=== PATIENT | female | born 1995 | race Caucasian/White ===

== ENCOUNTER 2016-06-23 02:16 | Inpatient (IN) | payer OTHER, MEDICAID ==
[~2016-06-23] VITALS: Ht 162.6 cm; Wt 94.8 kg
[2016-06-23] VITALS (16 sets, daily range): BP systolic 97–133; RESP 16–20; TEMP 98.1–98.6; Ht 162.6 cm; Wt 94.8 kg
[2016-06-23] MEDS ORDERED: ALU/MAG/SIM 30 ML UDC PO PRN (02:20)
[2016-06-23] MEDS ORDERED: ONDANSETRON 4 MG VIAL IV PRN (02:20)
[2016-06-23] MEDS ORDERED: FAMOTIDINE 20 MG INJ IV PRN (02:20)
[2016-06-23] MEDS ORDERED: LIDOCAINE 1% 30 ML PF INFILTRATE ONE (02:20)
[2016-06-23] MEDS ORDERED: OXYTOCIN 15 UNITS/250 ML NS 250 ML IV SCH ×2 (02:20→05:25)
[2016-06-23] MEDS ORDERED: ACETAMINOPHEN 325 MG TAB PO PRN (02:20)
[2016-06-23] MEDS ORDERED: METOCLOPRAMIDE 10 MG/2 ML VIAL IV PUSH PRN (02:20)
[2016-06-23] MEDS ORDERED: TERBUTALINE 1 MG/ML VIAL SUBQ PRN (02:20)
[2016-06-23] MEDS ORDERED: FAMOTIDINE 20 MG TAB PO PRN (02:20)
[2016-06-23] MEDS ORDERED: PROMETHAZINE 25 MG/ML VIAL IV PRN (02:20)
[2016-06-23] MEDS ORDERED: FENTANYL 100 MCG/2 ML AMP ONE (02:30)
[2016-06-23] MEDS ORDERED: ROPIV/FENT 0.2%-2MCG/ML 100 ML EPIDURAL ONE (02:30)
[2016-06-23] MEDS: LACT RINGERS 1,000 ML IV SCH ×2 (02:35→03:36)
[2016-06-23] MEDS ORDERED: LACT RINGERS 500 ML IV ONE (03:05)
[2016-06-23] MEDS ORDERED: SODIUM CHLORIDE 0.9% 500 ML IV PRN (03:05)
[2016-06-23] MEDS ORDERED: FENTANYL 100 MCG/2 ML AMP EPIDURAL ONE (03:05)
[2016-06-23] MEDS ORDERED: LACT RINGERS 500 ML IV PRN (03:05)
[2016-06-23] MEDS ORDERED: ROPIV/FENT 0.2%-2MCG/ML 100 ML EPIDURAL SCH (03:05)
[2016-06-23] MEDS ORDERED: PHARMACY TO DOSE GENTAMICIN IV PRN (03:15)
[2016-06-23] MEDS ORDERED: CLINDAMYCIN 900 MG in DEXTROSE 5% 50 ML IV PRN (03:15)
[2016-06-23] MEDS ORDERED: GENTAMICIN 350 MG in SODIUM CHLORIDE 0.9% 100 ML IV PRN (03:20)
[2016-06-23] MEDS ORDERED: MISOPROSTOL 200 MCG TAB PO ONE (05:25)
[2016-06-23] MEDS ORDERED: SALINE FLUSH 10 ML FLUSH PRN (05:25)
[2016-06-23] MEDS ORDERED: ASTRINGENT MED PADS 40'S TOPICAL PRN (05:25)
[2016-06-23] MEDS ORDERED: MISOPROSTOL 200 MCG TAB RECTAL ONE ×2 (05:25→06:20)
[2016-06-23] MEDS ORDERED: TDaP 0.5 ML VIAL IM.VACC ONE (05:25)
[2016-06-23] MEDS ORDERED: SODIUM CHLORIDE 0.9% FLUSH BAG 500 ML IV PRN (05:25)
[2016-06-23] MEDS ORDERED: DERMOPLAST SPRAY TOPICAL PRN (05:25)
[2016-06-23] MEDS ORDERED: MEASLES,MUMPS,RUBELLA VAC SUBQ.VACC ONE (05:25)
[2016-06-23] MEDS ORDERED: MAG HYDROX 30 ML UDC PO PRN (05:25)
[2016-06-23] MEDS ORDERED: ZOLPIDEM 5 MG TAB PO PRN (05:25)
[2016-06-23] MEDS ORDERED: MISOPROSTOL 100 MCG TAB ONE ×2 (05:48→06:11)
[2016-06-23] MEDS ORDERED: METHYLERGONOVINE MAL 0.2 MG/ML AMP ONE (06:11)
[2016-06-23] MEDS ORDERED: METHYLERGONOVINE MAL 0.2 MG/ML AMP IM ONE (06:20)
[2016-06-23] MEDS: Ibuprofen 800 MG TAB PO SCH ×3 (07:54→23:36)
[2016-06-23] MEDS: DOCUSATE SOD 100 MG CAP PO SCH (07:54)
[2016-06-23] MEDS ORDERED: **ONLY ANESTEHSIA MAY ORDER OPIATES WHILE ON EPIDURAL XX SCH (08:00)
[2016-06-23] MEDS: SALINE FLUSH 10 ML FLUSH SCH ×2 (08:00→20:00)
[2016-06-23] MEDS: METHYLERGONOVINE 0.2 MG TAB PO SCH ×3 (12:08→23:36)
[2016-06-24 02:01] VITALS: BP_SYST 115; RESP 16; TEMP 98
[2016-06-24 05:12] VITALS: BP_SYST 113; RESP 16; TEMP 97.5
[2016-06-24] MEDS: METHYLERGONOVINE 0.2 MG TAB PO SCH (05:47)
[2016-06-24] MEDS: SALINE FLUSH 10 ML FLUSH SCH (08:00)
[2016-06-24] MEDS: Ibuprofen 800 MG TAB PO SCH (08:15)
[2016-06-24] MEDS: DOCUSATE SOD 100 MG CAP PO SCH (08:15)
[2016-06-24 09:08] VITALS: BP_SYST 120; TEMP 97.4
[2016-06-24 09:09] VITALS: RESP 16
[2016-06-24 11:01] VITALS: BP_SYST 120; RESP 16; TEMP 97.4
== END 2016-06-24 13:27 | disposition home or self-care (01) | DRG 775 ==
LOC: LDOP 02:16 → LD 02:17 → OB 09:24
PROVIDERS: ADMIT Obstetrics & Gynecology; ATTEND Obstetrics & Gynecology
PROC: 10E0XZZ Delivery of Products of Conception, External Approach (ICD-10-PCS; principal; 2016-06-23)
PROC: 10907ZC Drainage of Amniotic Fluid, Therapeutic from Products of Conception, Via Natural or Artificial Opening (ICD-10-PCS; 2016-06-23)
PROC: 0HQ9XZZ Repair Perineum Skin, External Approach (ICD-10-PCS; 2016-06-23)
CPT/HCPCS: 82803; 85025; 86850; 86900; 86901